=== PATIENT | female | born 1960 | race Caucasian/White ===

== ENCOUNTER 2020-07-02 03:27 | Emergency (ER) | payer OTHER, SELFPAY ==
--- NOTE | 2020-07-02 03:31 | XR_ITS ---
EXAMINATION: XR HAND, LEFT CLINICAL INFORMATION: Deformity fifth digit, fall COMPARISON: None TECHNIQUE: PA, lateral, and oblique views of the left hand. FINDINGS: There is a mildly displaced longitudinally oriented fracture of the fifth proximal phalanx which may have intra-articular extension distally. There is ulnar deviation of the fifth middle phalanx at the proximal interphalangeal joint. Remaining structures of the hand appear intact. There is moderate to severe degenerative change at the basal joint of the thumb. XR/XR hand LT min 3V IMPRESSION: Mildly displaced fracture of the fifth proximal phalanx, with ulnar deviation of the middle phalanx at the PIP joint.
--- NOTE | 2020-07-02 03:31 | CT_ITS ---
EXAMINATION: NONCONTRAST HEAD CT NONCONTRAST CERVICAL SPINE CT INDICATION INFORMATION: Fall, pain COMPARISON: None TECHNIQUE: Separate noncontrast CT examinations of the head and cervical spine were performed. Coronal head CT images and coronal and sagittal cervical spine images were created at the technologist workstation. DLP: 992 mGy-cm DOSE LOWERING TECHNIQUES: This CT examination was performed using dose optimization techniques as appropriate, variously including the following: - Automated exposure control - Adjustment of mA and/or kV according to patient size (this includes techniques or standardized protocols for targeted exams were dose is matched to indication/reason for exam; i.e. extremities or head) - Use of iterative reconstruction technique FINDINGS: Head: There is no evidence of acute intracranial hemorrhage or territorial infarction. No abnormal mass-effect or midline shift is seen. Erickson to white matter differentiation is well preserved. No extra-axial fluid collections are identified. The ventricles are normal in size. There is no abnormal attenuation within the brain parenchyma. The osseous structures and soft tissues are normal. The mastoid air cells and visualized portions of the paranasal sinuses are well-aerated. Cervical spine: Limited assessment of the mid cervical spine due to patient motion artifact. There is anatomic alignment of the vertebral bodies and posterior elements. Vertebral body heights are maintained. There is disc space narrowing most prominently at C6-C7. Scattered endplate osteophytes are present. There is facet arthropathy most prominently in the mid cervical spine. No evidence of acute fracture. No prevertebral soft tissue swelling. Visualized portions of the lung apices are unremarkable. The thyroid gland is unremarkable. CT/CT cervical spine wo con IMPRESSION: 1. Head: No acute findings identified in the head. 2. Cervical spine: Limited assessment of the mid cervical spine due to motion artifact. Otherwise, no acute findings identified. Multilevel degenerative changes.
[2020-07-02 03:37] VITALS: BP 103/67; BP 124/86; PULSE 52; PULSE 88; RESP 16; TEMP 36.4; O2SAT 94; O2SAT 96; BMI 21.8
--- NOTE | 2020-07-02 03:41 | ED.FALL ---
HPI - Fall General Chief Complaint: Extremity Injury, Lower Stated Complaint: fall/etoh Time Seen by Provider: 07/02/20 03:31 Source: patient and EMS Mode of arrival: EMS History of Present Illness HPI Narrative: This is a 59-year-old female history of alcohol dependency and hypertension who is brought in by EMS this morning after having sustained a fall fall out of bed after drinking ?a lot of alcohol? that patient further specifies as 3-4 beers and ?probably a couple of shots?. She states that when she fell out of bed she caught her left hand on the wall 1st and states that her left 5th digit is painful and says that she is having some neck pain as well. Related Data Allergies Allergy/AdvReac Type Severity Reaction Status Date / Time promethazine [From PHENERGAN] Allergy Mild RASH Unverified 02/19/20 18:39 Review of Systems Review of Systems: Pertinent positives and negatives as stated in HPI 10 point review of systems is otherwise negative. [facility] Past Medical History Source: nursing notes reviewed Medical History Alcohol dependency HTN (hypertension) Social History Social History Alcohol intake: current Alcohol intake frequency: 3 or more drinks per day Alcohol type: other Smoking Status: Current every day smoker Use of substances other than those prescribed or required for medical reasons: Unknown Advance Directives: No Physical Exam Vital Signs: Vital Signs: Last Vital Signs Temp 97.6 F 07/02/20 03:37 Pulse 57 07/02/20 06:00 Resp 14 07/02/20 06:00 BP 92/57 L 07/02/20 06:00 Pulse Ox 94 07/02/20 06:00 Body Mass Index 21.8 VITAL SIGNS: Reviewed. GENERAL: Well developed, well nourished, in no acute distress. HEAD: Normocephalic/atraumatic EYES: PERRLA, EOMI EARS: Ext canals without abnormality NOSE: Nares patent bilateral OROPHARYNX: no oral lesions noted, posterior pharynx clear NECK: Supple, no adenopathy, no midline cervical spine tenderness, LUNGS: Normal breath sounds. CARDIOVASCULAR: Regular rate and rhythm without noted murmurs ABDOMEN: Soft, non-tender, non-distended with bowel sounds. Left 5th digit: Good capillary refill, laterally displaced at the PIP, sensation intact NEUROLOGIC: Alert and oriented x 4. GCS-15, Strength and sensation to light touch were grossly intact x 4. Course Course Course Narrative: This is a 59-year-old female with history and clinical presentation consistent with fall associated with intoxication. Will evaluate for evidence of intracranial or cervical injury as well as determine whether the left 5th digit is dislocated or fractured. Review of all investigations negative for any acute findings, but noted that alcohol level is undetectable and suspect that patient's current drowsy state is secondary to benzodiazepines given her history of PTSD. Left 5th pinky was successfully reduced and splinted and patient will be provided with a referral follow-up to Orthopedics. At this time, will continue to observe patient until she is more alert. Signed out to Dr Polk: October d/c when more alert and f/u left 5th finger XR. Procedures Orthopedic Joint Reduction Joint #1: Side: left Joint Reduction Location: finger Analgesia: none (Digital) Local Anesthesia: lidocaine 2% Amount of anesthesic used (mL): 4 Technique used: traction/counter-traction Post-reduction neuro exam: intact Post-reduction vascular: intact Post Reduction X-Ray Obtained: No Splint Applied: Yes Patient Tolerated Procedure: well MDM - Fall Lab Data Result diagrams: 07/02/20 05:34 07/02/20 05:34 Labs: Lab Results 07/02/20 07/02/20 07/02/20 Range/Units 05:34 05:34 05:34 WBC 7.5 (4.8-10.8) X10*3/uL RBC 4.04 L (4.20-5.50) X10*6/uL Hgb 13.7 (12.0-16.0) g/dl Hct 40.6 (37-47) % MCV 100.5 H (80-98) fL MCH 33.9 H (27.0-33.0) pg MCHC 33.7 (31.0-35.0) g/dl RDW 12.1 (11.0-16.0) % Plt Count 285 (160-400) X10*3/uL MPV 8.6 L (9.4-12.3) fL Immature Gran % (Auto) 0.3 (0.0-0.4) % Neut % (Auto) 65.9 (45-73) % Lymph % (Auto) 19.6 L (20-40) % [place] % (Auto) 10.2 (2-11) % Eos % (Auto) 3.2 (0-4) % Baso % (Auto) 0.8 (0-2) % Lymph # (Auto) 1.5 (1.2-4.9) X10*3/uL [place] # (Auto) 0.8 (0.1-1.2) X10*3/uL Eos # (Auto) 0.2 (0.0-0.4) X10*3/uL Baso # (Auto) 0.1 (0.0-0.2) X10*3/uL Abs Immat Gran (auto) 0.02 (0.00-0.03) X10*3/uL Absolute Neuts (auto) 4.9 (2.0-8.3) X10*3/uL Absolute Nucleated RBC 0.000 (0.0-0.012) X10*3/uL Nucleated RBC % (auto) 0.0 (0.0-0.2) /100WBC Sodium 142 (135-145) mmol/L Potassium 3.7 (3.3-5.1) mmol/l Chloride 104 (96-108) mmol/L Carbon Dioxide 29 (22-29) mmol/L Anion Gap 13 (12-20) BUN 15 (9-16) mg/dL Creatinine 0.81 (0.5-1.4) mg/dL Estim Creat Clear Calc 58.4 Estimated GFR > 60 Random Glucose 76 (60-115) mg/dL Calcium 8.9 (8.4-10.2) mg/dL Total Bilirubin 0.7 (0.0-1.0) mg/dL AST 12 (5-31) U/L ALT 11 (0-31) U/L Alkaline Phosphatase 111 (39-117) U/L Total Protein 6.3 L (6.5-8.0) g/dL Albumin 3.9 (3.5-5.0) g/dL Ethyl Alcohol < 10 mg/dL Discharge Plan Discharge Patient Disposition: Home, Self-Care Instructions: Finger Fracture (ED), Finger Dislocation (ED) Additional Instructions: You will need to keep this splint in place until you are evaluated by Orthopedics. A referral has been provided to you below. Please call the office today to arrange for an appointment. Referrals: Jeanna Whitney MD [Physician] - 2 days (Please evaluate left 5th proximal phalanx fracture.)
[2020-07-02] MEDS: Acetaminophen 325 MG TABLET 975 MG PO (03:51)
[2020-07-02] MEDS: Ketorolac Tromethamine 15 MG/ML VIAL IM (03:52)
[2020-07-02] MEDS: Lidocaine HCl 2 % MPF 5 ML VIAL INFILTRATI (03:52)
--- NOTE | 2020-07-02 03:52 | PC.NURSE ---
lindocaine given by provider
[2020-07-02 04:00] VITALS: BP 101/62; PULSE 60; RESP 14; O2SAT 96
[2020-07-02 04:44] VITALS: BP 95/58; PULSE 61; RESP 14; O2SAT 97
[2020-07-02 05:38] LABS: Basophils Absolute Auto 0.1 X10*3/uL (0.0-0.2); Basophils Percent Auto 0.8 % (0-2); Eosinophils Absolute Auto 0.2 X10*3/uL (0.0-0.4); Eosinophils Percent Auto 3.2 % (0-4); Hematocrit 40.6 % (37-47); Hemoglobin 13.7 g/dl (12.0-16.0); Imm Gran Abs Auto 0.02 X10*3/uL (0.00-0.03); Imm Gran Pct Auto 0.3 % (0.0-0.4); Lymphocytes Absolute Auto 1.5 X10*3/uL (1.2-4.9); Lymphocytes Percent Auto 19.6 % (20-40); MANUAL DIFF FLAG NO; Mean Corpuscular HGB Conc 33.7 g/dl (31.0-35.0); Mean Corpuscular Hemoglobin 33.9 pg (27.0-33.0); Mean Corpuscular Volume 100.5 fL (80-98); Mean Platelet Volume 8.6 fL (9.4-12.3); Monocytes Absolute Auto 0.8 X10*3/uL (0.1-1.2); Monocytes Percent Auto 10.2 % (2-11); Neutrophils Absolute Auto 4.9 X10*3/uL (2.0-8.3); Neutrophils Percent Auto 65.9 % (45-73); Platelet Count 285 X10*3/uL (160-400); Red Blood Count 4.04 X10*6/uL (4.20-5.50); Red Cell Distribution Width 12.1 % (11.0-16.0); White Blood Count 7.5 X10*3/uL (4.8-10.8)
[2020-07-02 06:00] VITALS: BP 92/57; PULSE 57; RESP 14; O2SAT 94
[2020-07-02 06:12] LABS: Ethanol < 10 mg/dL
[2020-07-02 06:16] LABS: Alanine Aminotransferase 11 U/L (0-31); Albumin Level 3.9 g/dL (3.5-5.0); Alkaline Phosphatase 111 U/L (39-117); Anion Gap 13 (12-20); Aspartate Amino Transferase 12 U/L (5-31); Bilirubin Total 0.7 mg/dL (0.0-1.0); Blood Urea Nitrogen 15 mg/dL (9-16); Calcium 8.9 mg/dL (8.4-10.2); Carbon Dioxide 29 mmol/L (22-29); Chloride 104 mmol/L (96-108); Creatinine Clr Calc Pharmacy 58.4; Estimated Glomerular Filt Rate > 60; Glucose Random 76 mg/dL (60-115); Potassium 3.7 mmol/l (3.3-5.1); Sodium 142 mmol/L (135-145); Total Protein 6.3 g/dL (6.5-8.0)
--- NOTE | 2020-07-02 06:51 | XR_ITS ---
EXAMINATION: XR HAND, LEFT CLINICAL INFORMATION: Post reduction left fifth digit. COMPARISON: Same-day left hand radiographs. TECHNIQUE: PA, lateral, and oblique views of the left hand. FINDINGS: Interval reduction and approximation of the fifth PIP joint. Nondisplaced comminuted fracture of the fifth proximal phalanx, unchanged. Remaining joints are approximated with preserved joint spaces with the exception of joint space narrowing osteophytosis and subchondral cystic changes at the thumb CMC joint. Mild fifth finger soft tissue swelling. Fifth finger splint noted. Metallic density over the distal forearm from jewelry. No radiopaque foreign body. XR/XR hand LT 2V IMPRESSION: Left hand: Interval reduction of fifth PIP joint dislocation. Unchanged nondisplaced comminuted fracture of the fifth proximal phalanx Moderate thumb CMC joint arthrosis.
--- NOTE | 2020-07-02 07:11 | PC.NURSE ---
pt able to be woken up. pt requesting to leave. pt flailing in the bed. rolling back and forth. will continue to monitor.
--- NOTE | 2020-07-02 08:10 | PC.NURSE ---
pt up to bathroom independently, requesting to leave
== END 2020-07-02 08:23 | disposition home or self-care (01) ==
PROVIDERS: Emergency Provider Student in an Organized Health Care Education/Training Program
DX: S62.607A Fracture of unspecified phalanx of left little finger, initial encounter for closed fracture (principal); M79.642 Pain in left hand; F10.129 Alcohol abuse with intoxication, unspecified; Y90.0 Blood alcohol level of less than 20 mg/100 ml; W06.XXXA Fall from bed, initial encounter; Y93.9 Activity, unspecified; Y92.009 Unspecified place in unspecified non-institutional (private) residence as the place of occurrence of the external cause; Y99.9 Unspecified external cause status; F17.200 Nicotine dependence, unspecified, uncomplicated; Z71.6 Tobacco abuse counseling
CPT/HCPCS: 26742; 36415; 70450; 72125; 73120; 73130; 80053; 80320; 85025; 96372; 99284; J1885

== ENCOUNTER 2021-01-27 19:33 | Emergency (ER) | payer OTHER, SELFPAY ==
--- NOTE | ~2021-01-27 | XR_ITS ---
EXAMINATION: XR SACRUM AND COCCYX CLINICAL INFORMATION: Fall. Extensive ecchymosis. COMPARISON: None TECHNIQUE: AP view of the sacrum, AP view of the coccyx, and lateral view of the sacrum and coccyx. FINDINGS: Bones are osteopenic. No acute fractures are identified. Focal posterior offset of the sacrum near the sacrococcygeal junction appears unchanged as compared to prior and could be due to prior injury or developmental variation. No acute fractures are identified on these images. 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 Grade 3 anterolisthesis of L5 on S1 is again noted with postsurgical changes in marked osseous remodeling at the facet joints. Spinal stimulator leads are present. XR/XR sacrum coccyx min 2V IMPRESSION: No acute osseous findings are identified at the sacrum and coccyx. Focal posterior offset of the coccyx at the sacrococcygeal junction is unchanged from 2014 and may be due to an old injury Grade 3 anterolisthesis of L5 on S1, chronic
[2021-01-27 19:36] VITALS: BP 111/82; PULSE 69; RESP 16; TEMP 36.8; O2SAT 93; BMI 20.1
--- NOTE | 2021-01-27 22:12 | ED_ITS ---
HPI - Fall General Chief Complaint: Fall Stated Complaint: ear infection Time Seen by Provider: 01/27/21 21:58 Source: patient Mode of arrival: wheelchair Limitations: no limitations History of Present Illness HPI Narrative: Patient comes emergency room complaining of pain in the coccyx area. Patient states that 3 days ago she was at home, lost her footing and landed on her buttocks. Patient has been able to walk, denies urinary/fecal retention/incontinence. Patient also complaining of left ear pain which started this morning. Patient states approximately 1 week ago she had left ear pain, then the symptoms went away, this morning she woke up with a swollen ear canal. Patient denies fever or chills Related Data Previous Rx's Medication Instructions Recorded amoxicillin 500 mg-potassium 1 tab PO BID #19 tab 01/27/21 clavulanate 125 mg tablet (Augmentin) Allergies Allergy/AdvReac Type Severity Reaction Status Date / Time promethazine [From PHENERGAN] Allergy Mild RASH Unverified 02/19/20 18:39 Review of Systems Review of Systems: Constitutional : No Weight loss, No Fever, No Chills, No Night Sweats, No Fatigue, No Malaise ENT/Mouth : No Hearing loss, complaining of left ear pain, No Nasal Congestion, No Sinus Pain, No Hoarseness, No sore throat, No Rhinorrhea, No Swallowing Difficulty Eyes: No Eye Pain, No Swelling, No Redness, No Foreign Body, No Discharge, No Vision Changes Cardiovascular : No Chest Pain, No SOB, No Dyspnea on Exertion, No Orthopnea, No Edema, No Palpitations Respiratory : No Cough, No Sputum, No Wheezing, No Smoke Exposure, No Dyspnea Gastrointestinal : No Nausea, No Vomiting, No Diarrhea, No Constipation, No abdominal Pain, No Hematochezia, No Melena Genitourinary : no irregular bleeding, No Dysuria, No Urinary Frequency, No Hematuria, No Urinary Incontinence, No Urgency, No Flank Pain, No Urinary Flow Changes, No Hesitancy Musculoskeletal : Complaining of pain in the coccyx/buttocks Skin : No Skin Lesions, No rash Neuro : No Weakness, No Numbness, No Paresthesias, No Loss of Consciousness, No Dizziness, No Headache Psych : No Anxiety/Panic, No Depression, No SI/HI/AH/VH, No Social Issues, Heme/Lymph: No Bruising, No Bleeding,No Lymphadenopathy Endocrine : No Polyuria, No Polydipsia, No Temperature Intolerance [facility] Past Medical History Medical History Alcohol dependency HTN (hypertension) Social History Social History Alcohol intake: current Alcohol intake frequency: 3 or more drinks per day Alcohol type: other Advance Directives: No Advance Directives Information Provided: No Physical Exam Vital Signs: Vital Signs: Last Vital Signs Temp 98.3 F 01/27/21 19:36 Pulse 69 01/27/21 19:36 Resp 16 01/27/21 19:36 BP 111/82 01/27/21 19:36 Pulse Ox 93 01/27/21 19:36 Body Mass Index 20.1 Const: Other: Appearance: Alert. Oriented X3. No acute distress. Patient seems intoxicated Eyes: Pupils equal, round and reactive to light. ENT: Pharynx normal. Left ear canal is swollen, erythematous, there is discharge, tympanic membrane is not visualized due to the swelling Neck: Normal inspection. Neck supple. No lymph nodes noted. No crepitus CVS: Normal heart rate and rhythm. Pulses normal. Normal S1 and S2 Respiratory: No respiratory distress. Breath sounds normal. No Wheezing. No rales Abdomen: Soft and nontender. No rigidity. No distention. back: Patient able to flex and extend the neck, no pain to palpation over cervical/thoracic/lumbar spine, pain to palpation over the coccyx area. Extensive ecchymosis of the right buttocks, superficial, does not seem to be an expanding hematoma Skin: Skin warm and dry. See above Extremities: No lower extremity edema. No lower extremity edema. No Lacerations. No Rash Neuro: Oriented X 3. No motor deficit. No sensory deficit. Moving all extermities. No slurred speech. Course Course Course Narrative: Patient's other is at bedside who will be patient's sober ride Patient was given the 1st dose of amoxicillin/clavulanic acid in the emergency room. I was informed that the patient's nurse that the patient took the antibiotic, then she decided to elope. I did not have a chance to discuss the x-rays with the patient. MDM - Fall Imaging Data Coccyx x-ray: Radiologist's impression: FINDINGS: Bones are osteopenic. No acute fractures are identified. Focal posterior offset of the sacrum near the sacrococcygeal junction appears unchanged as compared to prior and could be due to prior injury or developmental variation. No acute fractures are identified on these images. 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 Grade 3 anterolisthesis of L5 on S1 is again noted with postsurgical changes in marked osseous remodeling at the facet joints. Spinal stimulator leads are present. XR/XR sacrum coccyx min 2V IMPRESSION: No acute osseous findings are identified at the sacrum and coccyx. ? Focal posterior offset of the coccyx at the sacrococcygeal junction is unchanged from 2014 and may be due to an old injury ? Grade 3 anterolisthesis of L5 on S1, chronic Discharge Plan Discharge Clinical Impression: Coccyx pain Otitis media Qualifiers: Otitis media type: unspecified Chronicity: acute Qualified Code(s): H66.90 - Otitis media, unspecified, unspecified ear Patient Disposition: Elopement Instructions: Coccyx Injury (ED), Ear Infection (ED) Additional Instructions: Please follow-up with your primary care physician tomorrow. If you have any worsening or new symptoms, please return to the emergency room or call 911 Prescriptions: New amoxicillin-pot clavulanate [Augmentin] 500-125 mg tablet 1 tab PO BID Qty: 19 RF: 0
[2021-01-27] MEDS: Amoxicillin/Potassium Clav 500 MG TABLET PO (22:25)
--- NOTE | 2021-01-27 22:31 | PC.NURSE ---
PT SITTING UPRIGHT IN BED, MEDICATED PER EMAR. PT EATING PIZZA WITHOUT DIFFICULTY. PT'S DTR ASKED IF OK FOR D/C, THIS RN ADVISED AWAITING PROVIDER RE-EVAL AND UPDATED PLAN OF CARE W/ XRAY RESULTS. WHEN THIS RN RETURNED TO ROOM PT NO LONGER PRESENT, WITNESSED WHEELING OUT OF ED IN WHEELCHAIR.
== END 2021-01-27 23:06 | disposition left against medical advice (07) ==
PROVIDERS: Emergency Provider Emergency Medicine
DX: H66.92 Otitis media, unspecified, left ear (principal); S39.92XA Unspecified injury of lower back, initial encounter; W19.XXXA Unspecified fall, initial encounter; Y93.9 Activity, unspecified; Y92.019 Unspecified place in single-family (private) house as the place of occurrence of the external cause; Y99.9 Unspecified external cause status
CPT/HCPCS: 72220; 99282; 99283

== ENCOUNTER 2022-05-31 12:29 | Emergency (ER) | payer OTHER, SELFPAY ==
--- NOTE | ~2022-05-31 | XR_ITS ---
EXAMINATION: LEFT SHOULDER AND ELBOW X-RAY CLINICAL INFORMATION: Pain post fall COMPARISON: None TECHNIQUE: 3 views of the left shoulder and 3 views of the left elbow FINDINGS: Left shoulder: There is an old ununited distal clavicle fracture. No acute left shoulder fracture. Joint spaces are normal. Soft tissues are normal. There are multiple recent appearing left proximal rib fractures, the left second through seventh ribs. Left elbow: There is a vertical nondisplaced fracture of the radial head. No other fracture. Normal joint spaces. Elbow joint effusion. There may be medial soft tissue swelling. XR/XR shoulder LT min 2V IMPRESSION: Left shoulder: No acute fracture or dislocation. 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 Multiple recent appearing left rib fractures. Left elbow: Radial head fracture and elbow joint effusion.
--- NOTE | ~2022-05-31 | XR_ITS ---
EXAMINATION: XR HIP, LEFT CLINICAL INFORMATION: Pain. Fall. COMPARISON: Sacrum and coccyx x-ray January 2021 TECHNIQUE: Two views of the left hip. FINDINGS: Bone alignment is normal. No fracture or dislocation. Leads project over the bilateral lower lumbar sacral spine similar to previous exam. Soft tissues are otherwise unremarkable. XR/XR hip LT w PEL1V IMPRESSION: No fracture or dislocation.
--- NOTE | ~2022-05-31 | XR_ITS ---
EXAMINATION: LEFT SHOULDER AND ELBOW X-RAY CLINICAL INFORMATION: Pain post fall COMPARISON: None TECHNIQUE: 3 views of the left shoulder and 3 views of the left elbow FINDINGS: Left shoulder: There is an old ununited distal clavicle fracture. No acute left shoulder fracture. Joint spaces are normal. Soft tissues are normal. There are multiple recent appearing left proximal rib fractures, the left second through seventh ribs. Left elbow: There is a vertical nondisplaced fracture of the radial head. No other fracture. Normal joint spaces. Elbow joint effusion. There may be medial soft tissue swelling. XR/XR elbow LT min 3V IMPRESSION: Left shoulder: No acute fracture or dislocation. 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 Multiple recent appearing left rib fractures. Left elbow: Radial head fracture and elbow joint effusion.
[2022-05-31 12:51] VITALS: BP 143/81; PULSE 85; RESP 16; TEMP 36.4; O2SAT 95; BMI 21.4
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
[2022-05-31 14:13] VITALS: BP 103/53; PULSE 59; RESP 16; O2SAT 97
== END 2022-05-31 14:52 | disposition home or self-care (01) ==
PROVIDERS: Emergency Provider Student in an Organized Health Care Education/Training Program
DX: S52.122A Displaced fracture of head of left radius, initial encounter for closed fracture (principal); M25.552 Pain in left hip; R06.02 Shortness of breath; M25.512 Pain in left shoulder; W00.0XXA Fall on same level due to ice and snow, initial encounter; Y93.9 Activity, unspecified; Y92.480 Sidewalk as the place of occurrence of the external cause; Y99.9 Unspecified external cause status; Z79.899 Other long term (current) drug therapy
CPT/HCPCS: 29105; 73030; 73080; 73502; 94010; 99283